=== PATIENT | female | born 1955 | race Caucasian/White ===

== ENCOUNTER 2022-12-09 10:38 | Outpatient (CLI) | payer OTHER | END 2022-12-09 10:39 | disposition home or self-care (01) | LOC: CSHMRI 10:38 | PROVIDERS: ATTEND Nurse Practitioner Family | DX: M54.50 Low back pain, unspecified (principal); S32.020A Wedge compression fracture of second lumbar vertebra, initial encounter for closed fracture; M51.36 Other intervertebral disc degeneration, lumbar region | CPT/HCPCS: 72100; 72148 ==

== ENCOUNTER 2025-09-13 14:16 | Outpatient (CLI) | payer OTHER | END 2025-09-13 14:17 | disposition home or self-care (01) | LOC: CSHMAMMO 14:16 | PROVIDERS: ATTEND Nurse Practitioner Family | DX: Z12.31 Encounter for screening mammogram for malignant neoplasm of breast (principal) | CPT/HCPCS: 77063; 77067 ==